=== PATIENT | female | born 1985 | race Caucasian/White ===

== ENCOUNTER 2025-05-27 10:27 | Emergency (ER) | payer OTHER ==
[~2025-05-27] VITALS: Ht 165.1 cm; Wt 82.0 kg
[2025-05-27 10:31] VITALS: BP 127/64; PULSE 89; RESP 18; TEMP 36.8; O2SAT 100
[2025-05-27] MEDS: ACETAMINOPHEN 325MG TABLET PO ONE (11:30)
== END 2025-05-27 11:39 ==
LOC: ER 10:27
DX: S06.30AA Unspecified focal traumatic brain injury with loss of consciousness status unknown, initial encounter (principal); R45.851 Suicidal ideations; F41.9 Anxiety disorder, unspecified; X58.XXXA Exposure to other specified factors, initial encounter; Y93.89 Activity, other specified; Y92.89 Other specified places as the place of occurrence of the external cause; Y99.8 Other external cause status
CPT/HCPCS: 99284